=== PATIENT | male | born 1960 | race Caucasian/White ===

== ENCOUNTER 2018-04-13 09:35 | Emergency (ER) | payer BC ==
--- NOTE | 2018-04-13 10:43 | UC ---
Upper Extremity HPI - HPI Summary HPI Summary: Patient states that he fell off a ladder 6 days ago and hit his right forearm. Patient is gesturing just below the elbow. He states that on Sunday he noticed the area where he hit the forearm as well as around his elbow started to turn red and warm. He also notes the area became more painful. He states that all has gotten progressively worse. He denies any associated fever or chills. He states that he is unable to completely straighten the elbow due to pain. He states that he has a history of gout and thinks this might be gout. He denies any associated numbness or tingling to the arm, no history of diabetes and offers no other complaints. - History of Current Complaint Chief Complaint: UCUpperExtremity Stated Complaint: RIGHT ARM/ELBOW PAIN (GOUT) Time Seen by Provider: 04/13/18 10:36 Hx Obtained From: Patient, Family/[employer] Onset/Duration: Gradual Onset Pain Intensity: 8 Aggravating Factor(s): Movement Alleviating Factor(s): Nothing Associated Signs And Symptoms: Positive: Swelling, Redness. Negative: Weakness , Numbness/Tingling - Allergies/Home Medications Allergies/Adverse Reactions: Allergies Allergy/AdvReac Type Severity Reaction Status Date / Time No Known Allergies Allergy Verified 04/13/18 10:24 Home Medications: Home Medications Aspirin [Aspir-Low] 81 mg PO DAILY 04/13/18 [History Confirmed 04/13/18] Ibuprofen TAB* [Motrin TAB* 600 MG] 600 mg PO Q85H PRN 04/13/18 [History Confirmed 04/13/18] PMH/Surg Hx/FS Hx/Imm Hx - Additional Past Medical History Additional PMH: gout, chronic back pain Neurological History: CVA, Other - aneurysm Other Neurological History: aneurysm - Surgical History Surgical History: Yes Surgery Procedure, Year, and Place: right inguinal and umbilical hernias; right elbow and carpal tunnel; left knee cartilage, aneurysm repair with coil - Social History Lives: With Family Alcohol Use: Rare Substance Use Type: None Smoking Status (MU): Heavy Every Day Tobacco Smoker - Immunization History Vaccination Up to Date: Yes Review of Systems Constitutional: Negative Skin: Negative Eyes: Negative ENT: Negative Respiratory: Negative Cardiovascular: Negative Gastrointestinal: Negative Genitourinary: Negative Motor: Negative Neurovascular: Negative Musculoskeletal: Other: - pain, red, warm, swelling R elbow Neurological: Negative Psychological: Negative Is Patient Immunocompromised?: No All Other Systems Reviewed And Are Negative: Yes Physical Exam Triage Information Reviewed: Yes Appearance: Well-Appearing Vital Signs: Initial Vital Signs Temp 98.8 F 04/13/18 10:11 Pulse 67 04/13/18 10:11 Resp 20 04/13/18 10:11 BP 160/102 04/13/18 10:11 Pulse Ox 98 04/13/18 10:11 Vital Signs Reviewed: Yes Eyes: Positive: Conjunctiva Clear ENT: Positive: Normal ENT inspection Neck: Positive: Supple, Nontender, No Lymphadenopathy Respiratory: Positive: Chest non-tender, Lungs clear Cardiovascular: Positive: RRR, No Murmur Abdomen Description: Positive: Nontender, No Organomegaly, Soft Bowel Sounds: Positive: Present Musculoskeletal: Positive: Other: - Right upper extremity exam: Shoulder, wrist and hand are atraumatic. Hand has full sensory vascular motor function. Right elbow when compared to left shows mild swelling to the olecranon bursa, mild swelling to the dorsal aspect of the medial elbow and those areas have mild erythema/warmth. The olecranon bursa and dorsal medial elbow as well as proximal third of the forearm are tender to palpation. I do not appreciate epitrochlear adenopathy and there is no streaking. Patient is able to flex, supinate and pronate at the elbow; however, he has slight limitation with full extension which she attributes to pain. Neurological: Positive: Alert Psychological: Positive: Normal Response To Family, Age Appropriate Behavior Skin Exam: Normal Upper Extremity Course/Dx - Course Course Of Treatment: This erythema and warmth of the joint is not circumferential. It is immediately adjacent to the area of injury 6 days ago. I do think that this exam is concerning for a septic olecranon bursitis as well as cellulitis. The patient is nontoxic, does not have a fever and range of motion is only limited on full extension. septic joint is less concerning but still possible. Also, still need to exclude fracture. Patient requires higher level of care this needs to go to the ER. Patient and agree to transfer and will drive by private car. While here, I did discuss concern over patient' s elevated blood pressure especially given his history of aneurysm and CVA. I stressed the importance of need for treatment and close follow-up. BP at time of discharge it was 158/104. I do not feel this is hypertensive urgency or emergency and he has no headache or neurologic deficits. Report called to the [facility] ER to Amy Patel NP. advised of erythema, warmth, swelling and pain to olecranon bursa, medial elbow and inability to fully extend the elbow given pain. advised of injury to proximal FA 6 days prior as well. advised pt felt gout; however, I do not feel gout. I think infection and need to r/o fx give hx of injury. also advised of current BP 158/104. - Differential Dx/Diagnosis Provider Diagnoses: Septic bursitis R elbow, Cellulitis R elbow, R/O fracture R elbow/proximal forearm area. Elevated BP 158/104 Discharge - Sign-Out/Discharge Documenting (check all that apply): Discharge/Admit/Transfer - Discharge Plan Condition: Stable Disposition: TRANS HIGHER LVL OF CARE FAC Referrals: Juan Carlos Fang MD [Primary Care Provider] - Additional Instructions: GO DIRECTLY TO THE [facility] FROM HERE DISCUSSED - Billing Disposition and Condition Condition: STABLE Disposition: Trans Higher Lvl of Care Fac
== END 2018-04-13 11:15 | disposition short-term general hospital (02) ==
LOC: UCCORT 09:35
DX: M71.521 Other bursitis, not elsewhere classified, right elbow (principal); L03.113 Cellulitis of right upper limb; R03.0 Elevated blood-pressure reading, without diagnosis of hypertension; Z86.73 Personal history of transient ischemic attack (TIA), and cerebral infarction without residual deficits; F17.210 Nicotine dependence, cigarettes, uncomplicated
CPT/HCPCS: 99202; G0463